=== PATIENT | female | born 1965 | race Caucasian/White ===

== ENCOUNTER 2019-04-01 15:08 | Emergency (ER) | payer OTHER ==
[~2019-04-01] VITALS: Ht 177.8 cm; Wt 90.7 kg
[2019-04-01 15:10] VITALS: Ht 177.8 cm; Wt 90.7 kg
[2019-04-01 16:21] LABS: BASOPHIL % 0.5 % (0-2); PLATELET COUNT 238 x10^3mcL (130-400); RED CELL DISTRIBUTION WIDTH 14.2 % (11.5-14.5)
[2019-04-01 16:57] LABS: CARBON DIOXIDE 24.4 mmol/L (21-32); CREATININE SERUM 1.2 mg/dL (0.6-1.0); POTASSIUM SERUM 4.3 mmol/L (3.5-5.1)
[2019-04-01 16:58] LABS: ALBUMIN 3.5 g/dL (3.4-5.0); BILIRUBIN TOTAL 0.14 mg/dL (0.20-1.00); CALCIUM 8.5 mg/dL (8.5-10.1); TOTAL PROTEIN, SERUM 6.3 g/dL (6.4-8.2)
[2019-04-01 20:58] VITALS: BP 103/55
== END 2019-04-01 20:58 | disposition short-term general hospital (02) ==
LOC: ED 15:08
DX: T40.2X1A Poisoning by other opioids, accidental (unintentional), initial encounter (principal); R55 Syncope and collapse; F41.9 Anxiety disorder, unspecified; Y92.89 Other specified places as the place of occurrence of the external cause; Z98.890 Other specified postprocedural states
CPT/HCPCS: J1885; J2310; J2405; J7030

== ENCOUNTER 2020-03-01 23:31 | Emergency (ER) | payer OTHER ==
[~2020-03-01] VITALS: Ht 180.3 cm; Wt 90.7 kg
[2020-03-01 23:46] VITALS: Ht 180.3 cm; Wt 90.7 kg
[2020-03-02 01:31] LABS: BASOPHIL % 0.2 % (0-2); PLATELET COUNT 241 x10^3mcL (130-400); RED CELL DISTRIBUTION WIDTH 14.2 % (11.5-14.5)
[2020-03-02 01:38] LABS: CALCIUM 8.7 mg/dL (8.5-10.1); CARBON DIOXIDE 24.6 mmol/L (21-32); CHLORIDE SERUM 105 mmol/L (98-107); CREATININE SERUM 0.9 mg/dL (0.6-1.0); GFR1 > 60 mL/min; GLUCOSE SERUM 113 mg/dL (74-106); POTASSIUM SERUM 3.6 mmol/L (3.5-5.1); SODIUM SERUM 140 mmol/L (136-145)
[2020-03-02 01:42] LABS: ALBUMIN 3.7 g/dL (3.4-5.0); ALKALINE PHOSPHATASE 55 U/L (46-116); ALT/SGPT 31 U/L (14-59); AST/SGOT 25 U/L (15-37); BILIRUBIN TOTAL 0.41 mg/dL (0.20-1.00); LIPASE 57 IU/L (73-393)
[2020-03-02 07:18] VITALS: BP 130/79
== END 2020-03-02 07:18 | disposition home or self-care (01) ==
LOC: ED 23:31
PROVIDERS: Student in an Organized Health Care Education/Training Program
DX: N39.0 Urinary tract infection, site not specified (principal)

== ENCOUNTER 2020-04-12 11:15 | Emergency (ER) | payer OTHER ==
[~2020-04-12] VITALS: Ht 177.8 cm; Wt 106.6 kg
[2020-04-12 11:25] VITALS: Ht 177.8 cm; Wt 106.6 kg
[2020-04-12 13:31] LABS: CALCIUM 9.3 mg/dL (8.5-10.1); CARBON DIOXIDE 23.6 mmol/L (21-32); CHLORIDE SERUM 108 mmol/L (98-107); CREATININE SERUM 0.9 mg/dL (0.6-1.0); GFR1 > 60 mL/min; GLUCOSE SERUM 110 mg/dL (74-106); SODIUM SERUM 141 mmol/L (136-145)
[2020-04-12 13:37] LABS: BASOPHIL % 0.8 % (0-2); PLATELET COUNT 283 x10^3mcL (130-400); RED CELL DISTRIBUTION WIDTH 13.9 % (11.5-14.5)
[2020-04-12 13:43] LABS: ALBUMIN 3.7 g/dL (3.4-5.0); ALKALINE PHOSPHATASE 45 U/L (46-116); ALT/SGPT 35 U/L (14-59); AMYLASE 27 U/L (25-115); AST/SGOT 18 U/L (15-37); BILIRUBIN TOTAL 0.3 mg/dL (0.20-1.00); LIPASE 44 IU/L (73-393); TOTAL PROTEIN, SERUM 6.9 g/dL (6.4-8.2)
[2020-04-12 14:54] VITALS: BP 124/85
== END 2020-04-12 14:54 | disposition home or self-care (01) ==
LOC: ED 11:15
PROVIDERS: Emergency Medicine
DX: R10.84 Generalized abdominal pain (principal); M79.641 Pain in right hand; F41.9 Anxiety disorder, unspecified
CPT/HCPCS: Q0092; Q0162

== ENCOUNTER 2020-04-13 16:38 | Emergency (ER) | payer OTHER ==
[~2020-04-13] VITALS: Ht 180.3 cm; Wt 81.6 kg
[2020-04-13 16:39] VITALS: BP 112/71; Ht 180.3 cm; Wt 81.6 kg
== END 2020-04-13 17:45 | disposition left against medical advice (07) ==
LOC: ED 16:38
DX: Z53.21 Procedure and treatment not carried out due to patient leaving prior to being seen by health care provider (principal)

== ENCOUNTER 2020-04-14 01:20 | Emergency (ER) | payer OTHER ==
[~2020-04-14] VITALS: Ht 180.3 cm; Wt 104.8 kg
[2020-04-14 01:36] VITALS: BP 140/84; Ht 180.3 cm; Wt 104.8 kg
== END 2020-04-14 03:23 | disposition left against medical advice (07) ==
LOC: ED 01:20
DX: Z53.21 Procedure and treatment not carried out due to patient leaving prior to being seen by health care provider (principal)

== ENCOUNTER 2020-04-14 04:31 | Emergency (ER) | payer OTHER ==
[~2020-04-14] VITALS: Ht 175.3 cm; Wt 105.7 kg
[2020-04-14 04:49] VITALS: Ht 175.3 cm; Wt 105.7 kg
[2020-04-14 05:59] LABS: BASOPHIL % 0.4 % (0-2); PLATELET COUNT 297 x10^3mcL (130-400); RED CELL DISTRIBUTION WIDTH 13.5 % (11.5-14.5)
[2020-04-14 06:03] LABS: CALCIUM 9.2 mg/dL (8.5-10.1); CARBON DIOXIDE 21.4 mmol/L (21-32); CHLORIDE SERUM 106 mmol/L (98-107); GFR1 > 60 mL/min; GLUCOSE SERUM 102 mg/dL (74-106); POTASSIUM SERUM 3.6 mmol/L (3.5-5.1); SODIUM SERUM 139 mmol/L (136-145)
[2020-04-14 06:08] LABS: ALBUMIN 3.9 g/dL (3.4-5.0); ALKALINE PHOSPHATASE 43 U/L (46-116); ALT/SGPT 33 U/L (14-59); AST/SGOT 22 U/L (15-37); BILIRUBIN TOTAL 0.39 mg/dL (0.20-1.00); LIPASE 43 IU/L (73-393); TOTAL PROTEIN, SERUM 7.2 g/dL (6.4-8.2)
[2020-04-14 07:13] LABS: UA SPECIFIC GRAVITY 1.015 (1.005-1.035); microscopic required? YES; urine erythrocyte NEGATIVE (NEGATIVE)
[2020-04-14 08:45] VITALS: BP 132/91
== END 2020-04-14 08:45 | disposition home or self-care (01) ==
LOC: ED 04:31
PROVIDERS: Emergency Medicine
DX: N39.0 Urinary tract infection, site not specified (principal); R10.33 Periumbilical pain; G89.29 Other chronic pain; M25.531 Pain in right wrist
CPT/HCPCS: J0696; J3490; J7030